=== PATIENT | male | born 1995 ===

== ENCOUNTER 2023-07-01 15:11 | Emergency (ER) | payer OTHER, MEDICAID, SELFPAY ==
[2023-07-01 15:41] VITALS: BP 151/83; PULSE 89; RESP 18; TEMP 36.6; O2SAT 96; BMI 29.5
[2023-07-01 16:28] LABS: UR Morphine/Opiate cutoff 300 Negative (Negative); Ur Creatinine Normal (Normal); Ur Specific Gravity Normal (Normal); Urine Amphetamines Negative (Negative); Urine Barbiturates Negative (Negative); Urine Benzodiazepines Negative (Negative); Urine Cocaine Negative (Negative); Urine MDMA Negative (Negative); Urine Methadone Negative (Negative); Urine Methamphetamines Negative (Negative); Urine Oxycodone Negative (Negative); Urine Phencyclidine Negative (Negative); Urine Tetrahydrocannabinol Negative (Negative); Urine Tricyclic Antidepressant Negative (Negative); Urine pH Normal (Normal)
--- NOTE | 2023-07-01 17:38 | ED.MALEGU ---
HPI - Male Genitourinary <Kari Logan PA-C - Last Filed: 07/01/23 18:55> General Chief complaint: Urogenital-Male Stated complaint: issues with urinating Time Seen by Provider: 07/01/23 17:20 Source: patient Mode of arrival: Ambulatory History of Present Illness HPI Narrative: Patient is a 27-year-old male who presents with inability to urinate when instructed to produce urine under observation for a urine drug screen in the [place]. He reports he used to be able to urinate without any problem. Over time, it has become harder for him to urinate on command especially while observed. He was sent here today by the maybe because he was not able to produce urine for urine drug screen. He endorses discomfort while urinating on occasion in the past including mild low back pain at 1 point, but no recent pain, hematuria, penile discharge, skin lesions, testicular pain or swelling. Is sexually active. No history of bladder infections or kidney infections that knows of. Related Data Allergies Allergy/AdvReac Type Severity Reaction Status Date / Time No Known Drug Allergies Allergy Verified 07/01/23 15:41 Review of Systems <Kari Logan PA-C - Last Filed: 07/01/23 18:55> Review of Systems ROS Unobtainable: All systems reviewed & are unremarkable except as noted in HPI and below Patient History <Kari Logan PA-C - Last Filed: 07/01/23 18:55> Social History Smoking Status: Never smoker Smoking Status: Never smoker alcohol intake frequency: holidays/special occasions only Substance Use Type: does not use Exam <Kari Logan PA-C - Last Filed: 07/01/23 18:55> Narrative Exam Narrative: GENERAL: 27 year old patient appears stated age. Well-developed patient, in no distress. NEURO: AOx3. HEAD: Atraumatic. Normocephalic. RESPIRATORY: no distress GASTROINTESTINAL: Abdomen soft, non-tender, nondistended. No CVA tenderness. EXTREMITIES: No edema or joint tenderness. SKIN: No rash or erythema of visible areas Initial Vital Signs Initial Vital Signs: Vital Signs Temperature 97.8 F 07/01/23 15:41 Pulse Rate 89 07/01/23 15:41 Respiratory Rate 18 07/01/23 15:41 Blood Pressure 151/83 H 07/01/23 15:41 Pulse Oximetry 96 07/01/23 15:41 Oxygen Delivery Method Room Air 07/01/23 15:41 <Mac Esteban MD - Last Filed: 07/20/23 21:48> Initial Vital Signs Initial Vital Signs: Vital Signs Temperature 97.8 F 07/01/23 15:41 Pulse Rate 89 07/01/23 15:41 Respiratory Rate 18 07/01/23 15:41 Blood Pressure 151/83 H 07/01/23 15:41 Pulse Oximetry 96 07/01/23 15:41 Oxygen Delivery Method Room Air 07/01/23 15:41 Course <Kari Logan PA-C - Last Filed: 07/01/23 18:55> Orders Ordered: ED Orders 07/01/23 16:05 Chlamydia Gonorrhea PCR -URINE Stat Urine Drug Screen, Rapid Stat Vital Signs Vital signs: Vital Signs - 8 hr 07/01/23 15:41 Temperature 97.8 F Pulse Rate 89 Respiratory Rate 18 Blood Pressure 151/83 H Pulse Oximetry 96 Oxygen Delivery Method Room Air <Mac Esteban MD - Last Filed: 07/20/23 21:48> Orders Ordered: ED Orders 07/01/23 16:05 Chlamydia Gonorrhea PCR -URINE Stat Urine Drug Screen, Rapid Stat Vital Signs Vital signs: Vital Signs - 8 hr 07/01/23 15:41 Temperature 97.8 F Pulse Rate 89 Respiratory Rate 18 Blood Pressure 151/83 H Pulse Oximetry 96 Oxygen Delivery Method Room Air MDM - Male Genitourinary <Kari Logan PA-C - Last Filed: 07/01/23 18:55> Lab Data Labs: Lab Results 07/01/23 07/01/23 Range/Units 16:05 16:05 U Opiates 300ng/mL cut Negative (Negative) Ur Oxycodone Screen Negative (Negative) Urine Methadone Screen Negative (Negative) Ur Barbiturates Screen Negative (Negative) U Tricyclic Antidepress Negative (Negative) Ur Phencyclidine Scrn Negative (Negative) Ur Amphetamines Screen Negative (Negative) U Methamphetamines Scrn Negative (Negative) Ur MDMA Scrn (Ecstasy) Negative (Negative) U Benzodiazepines Scrn Negative (Negative) Urine Cocaine Screen Negative (Negative) U Marijuana (THC) Screen Negative (Negative) Ur Chlamydia DNA (PCR) Not detected N gonorrhoeae DNA (PCR) Not detected Urine Dip Bedside Urine Glucose Negative Bedside Urine Bilirubin - Negative Bedside Urine Ketone - Negative Urine Specific [place] 1.010 Bedside Urine Occult Blood - Negative Bedside Urine pH 6.0 Bedside Urine Protein - Negative Bedside Urine Urobilinogen - Negative Bedside Urine Nitrite - Negative Bedside Urine Leukocytes - Negative Esterase MDM Narrative Medical decision making narrative: Multiple etiologies for patient's symptoms considered including, but not limited to: UTI, epididymitis, sexually transmitted infection, pyelonephritis, BPH. UA and urine drug screen negative. Patient denies any testicular pain or swelling, declines genital exam by provider. Reports he mostly needs to have a drug test here for the [facility] because he was not able to provide a sample there. We will check GC chlamydia and notify of results. Advised that if this symptom continues, he should for all to a urologist. Patient's symptoms improved over duration of stay with above-stated therapies. Findings and discharge diagnosis discussed with patient/family followed by verbalization of understanding Return precautions discussed with patient/family whom verbalize understanding of diagnosis and plan <Mac Esteban MD - Last Filed: 07/20/23 21:48> Lab Data Labs: Lab Results 07/01/23 07/01/23 Range/Units 16:05 16:05 U Opiates 300ng/mL cut Negative (Negative) Ur Oxycodone Screen Negative (Negative) Urine Methadone Screen Negative (Negative) Ur Barbiturates Screen Negative (Negative) U Tricyclic Antidepress Negative (Negative) Ur Phencyclidine Scrn Negative (Negative) Ur Amphetamines Screen Negative (Negative) U Methamphetamines Scrn Negative (Negative) Ur MDMA Scrn (Ecstasy) Negative (Negative) U Benzodiazepines Scrn Negative (Negative) Urine Cocaine Screen Negative (Negative) U Marijuana (THC) Screen Negative (Negative) Ur Chlamydia DNA (PCR) Not detected N gonorrhoeae DNA (PCR) Not detected Urine Dip Bedside Urine Glucose Negative Bedside Urine Bilirubin - Negative Bedside Urine Ketone - Negative Urine Specific [place] 1.010 Bedside Urine Occult Blood - Negative Bedside Urine pH 6.0 Bedside Urine Protein - Negative Bedside Urine Urobilinogen - Negative Bedside Urine Nitrite - Negative Bedside Urine Leukocytes - Negative Esterase Discharge Plan Departure Patient Disposition: Home Clinical Impression: Urinary hesitancy Instructions: DI for Urinary Retention in Men Activity Restrictions/Additional Instructions: *You have been diagnosed with urinary hesitancy. Your urine test did not show any signs of infection or blood today. Your drug screen was negative. I suspect your urinary hesitancy has a psychological component, perhaps related to anxiety. I would suggest following up with a urologist if this persists. *What to do: *Please continue to take your regular medications as directed. [ ] New medication prescriptions sent to your pharmacy: [ ] [ ] New medication written as a paper prescription [ x] No new medications given *Please follow up with your primary care provider in 2-3 days, call for an appointment. Let them know you were seen in the Emergency Department and that we ask that you be seen in follow up. We will electronically transmit a record of today's note if your PCP is in our system *If you do not have a primary care provider please contact the [facility] Resource line at [phone]. They will ask some questions about your medical history and help get you set up with a doctor in the community. *Return to Emergency Department if you should have any new, worsening or concerning symptoms, such as [fever greater than 101 F, shaking chills, worsening pain, persistent vomiting or other bothersome symptoms] Referrals: Provider[facility] [Primary Care Provider] - Stand Alone Forms: Patient Portal/API <Mac Esteban MD - Last Filed: 07/20/23 21:48> Cosign ED Attending Abebaature Attestation: I was immediately available in the department for consultation. This documentation has been reviewed and I agree with assessment and plan. Supervised by Mac Esteban MD
--- NOTE | 2023-07-01 17:44 | PC.NURSE ---
seen and assessed by KATHY Logan without RN involvement
[2023-07-01 19:29] LABS: Urine N gonorrhoeae NOT DETECTED
[2023-07-01 19:36] LABS: Urine Chlamydia NOT DETECTED
== END 2023-07-01 17:45 | disposition home or self-care (01) ==
PROVIDERS: Emergency Medicine; Emergency Provider Physician Assistant
DX: R39.11 Hesitancy of micturition (principal)
CPT/HCPCS: 80305; 81003; 87491; 87591; 99282